=== PATIENT | male | born 1970 | race Caucasian/White ===

== ENCOUNTER 2020-02-14 10:52 | Day surgery (SDC) | payer OTHER ==
[2020-02-13 09:22] VITALS: BMI 34.4
[2020-02-14] MEDS ORDERED: MIDAZOLAM HCL 2 MG/2 ML SINGLE DOSE VIAL ONE ×3 (12:25→15:37)
[2020-02-14] MEDS ORDERED: ROPIVACAINE HCL 0.5% 30ML VIAL ONE (12:25)
[2020-02-14] MEDS ORDERED: DEXAMETHASONE SOD PHOSPHATE/PF 10 MG/ML SDV ONE (12:36)
[2020-02-14] MEDS ORDERED: ceFAZolin SODIUM 1 GM VIAL ONE (14:00)
[2020-02-14] MEDS ORDERED: ONDANSETRON 4 MG/2 ML VIAL ONE (14:00)
[2020-02-14] MEDS ORDERED: DEXAMETHASONE SOD PHOSPHATE 4 MG/1 ML VIAL ONE (14:00)
[2020-02-14] MEDS ORDERED: PROPOFOL 20 ML ONE (14:02)
[2020-02-14] MEDS ORDERED: TRANEXAMIC ACID 1000 MG/10 ML VIAL ONE (15:20)
[2020-02-14] MEDS ORDERED: ONDANSETRON 4 MG/2 ML VIAL IVPUSH PRN (16:04)
[2020-02-14] MEDS ORDERED: PROMETHAZINE HCL 25 MG/1 ML VIAL IVPUSH PRN (16:04)
[2020-02-14] MEDS ORDERED: oxyCODONE HCL 5 MG TABLET PO PRN ×2 (16:04)
[2020-02-14 17:00] VITALS: PULSE 82; TEMP 98.2
[2020-02-14 17:40] VITALS: BP 137/78
== END 2020-02-14 17:43 | disposition home or self-care (01) ==
LOC: FASU 10:52
PROVIDERS: ATTEND Orthopaedic Surgery Sports Medicine
PROC: 0LS34ZZ Reposition Right Upper Arm Tendon, Percutaneous Endoscopic Approach (ICD-10-PCS; 2020-02-14)
PROC: 0RNJ4ZZ Release Right Shoulder Joint, Percutaneous Endoscopic Approach (ICD-10-PCS; 2020-02-14)
PROC: 0RQJ4ZZ Repair Right Shoulder Joint, Percutaneous Endoscopic Approach (ICD-10-PCS; 2020-02-14)
PROC: 0LM14ZZ Reattachment of Right Shoulder Tendon, Percutaneous Endoscopic Approach (ICD-10-PCS; principal; 2020-02-14 14:20)
DX: M75.101 Unspecified rotator cuff tear or rupture of right shoulder, not specified as traumatic (principal); M75.41 Impingement syndrome of right shoulder; M75.21 Bicipital tendinitis, right shoulder; M24.111 Other articular cartilage disorders, right shoulder
CPT/HCPCS: 94760

== ENCOUNTER 2022-02-07 12:44 | Emergency (ER) | payer OTHER ==
[2022-02-07 13:00] VITALS: BMI 35.4
[2022-02-07 13:44] LABS: HEMATOCRIT 46.6 % (35.4-49); HEMOGLOBIN 16.3 G/dL (11.7-16.9); MCH 28.2 pg (25.7-33.7); MCHC 34.9 g/dl (32.0-35.9); MEAN CELL VOLUME 80.7 fl (80-96); MEAN PLT VOLUME 8.2 fl (7.5-11.1); PLATELET COUNT 202.9 10^3/uL (134-434); RBC 5.77 10^6/uL (4.00-5.60); RDW 14.1 % (11.9-15.9); WHITE BLOOD COUNT 12.3 10^3/uL (4.0-10.8)
[2022-02-07 13:51] LABS: ALBUMIN 3.8 g/dl (3.4-5.0); BILIRUBIN,TOTAL 1.1 mg/dl (0.2-1)
[2022-02-07 14:10] LABS: CALCIUM 9.1 mg/dl (8.5-10)
[2022-02-07 17:14] VITALS: BP 130/90; PULSE 90; RESP 18; TEMP 99.3
== END 2022-02-07 17:17 | disposition home or self-care (01) ==
LOC: FER 12:44
DX: K57.92 Diverticulitis of intestine, part unspecified, without perforation or abscess without bleeding (principal)
CPT/HCPCS: 36415; 71045-TC-FY; 74177-TC; 80053; 81003; 83690; 85025; 99285-25; Q9967

== ENCOUNTER 2023-06-27 11:35 | Emergency (ER) | payer BC, OTHER ==
[2023-06-27 11:50] VITALS: BP 135/82; PULSE 86; RESP 18; TEMP 99; BMI 35.4
[2023-06-27] MEDS ORDERED: ACETAMINOPHEN 500 MG TABLET (FP) ONE (12:24)
[2023-06-27] MEDS: ACETAMINOPHEN 500 MG TABLET (FP) PO ONE (12:31)
[2023-06-27] MEDS: SODIUM CHLORIDE 1,000 ML IV STA (12:31)
[2023-06-27 12:40] LABS: BASO % 0.3 % (0-2.0); EOS % 0.3 % (0-4.5); HEMATOCRIT 45.4 % (35.4-49); HEMOGLOBIN 15.3 GM/dL (11.7-16.9); LYMPH % 14.3 % (8-40); MCH 27.7 pg (25.7-33.7); MCHC 33.7 g/dl (32.0-35.9); MEAN CELL VOLUME 82.2 fl (80-96); MEAN PLT VOLUME 8.6 fl (7.5-11.1); MONO % 6.7 % (3.8-10.2); NEUT % 78.4 % (42.8-82.8); PH,URINE 5.5 (5.0-8.0); PLATELET COUNT 213 10^3/uL (134-434); RBC 5.53 M/mm3 (4.00-5.60); RDW 14.2 % (11.9-15.9); URINE APPEARANCE CLEAR; URINE BILIRUBIN NEGATIVE (NEGATIVE); URINE COLOR YELLOW; URINE GLUCOSE (UA) NEGATIVE (NEGATIVE); URINE KETONE NEGATIVE (NEGATIVE); URINE LEUK ESTERASE NEGATIVE (NEGATIVE); URINE NITRITE NEGATIVE (NEGATIVE); URINE PROTEIN NEGATIVE (NEGATIVE); URINE UROBILINOGEN 0.2 mg/dL (0.2-1.0)
[2023-06-27 13:08] LABS: POTASSIUM 3.9 mmol/L (3.5-5.1)
[2023-06-27 13:10] LABS: BLOOD UREA NITROGEN 8.7 mg/dL (7-18)
[2023-06-27 13:15] LABS: BILIRUBIN,TOTAL 1.9 mg/dL (0.2-1); TOT PROT 7.1 g/dl (6.4-8.2)
[2023-06-27] MEDS ORDERED: AMOX TR/POT CLAV 875MG/125MG TABLETS (FP) ONE (14:58)
[2023-06-27] MEDS: AMOX TR/POT CLAV 875MG/125MG TABLETS (FP) PO ONE (14:58)
== END 2023-06-27 15:03 | disposition home or self-care (01) ==
LOC: JER 11:35
PROC: 3E0337Z Introduction of Electrolytic and Water Balance Substance into Peripheral Vein, Percutaneous Approach (ICD-10-PCS; principal; 2023-06-27)
DX: R10.32 Left lower quadrant pain (principal); N50.812 Left testicular pain; R30.0 Dysuria; K59.00 Constipation, unspecified; K57.92 Diverticulitis of intestine, part unspecified, without perforation or abscess without bleeding
CPT/HCPCS: 36415; 74177-TC; 76870-TC; 80053; 81003; 83690; 85025; 99285-25; Q9967